=== PATIENT | female | born 1965 | race Caucasian/White ===

== ENCOUNTER 2017-07-08 20:50 | Inpatient (IN) | payer BC, OTHER ==
--- NOTE | 2017-07-08 20:58 | PDOC ---
Rapid Medical Evaluation Time Seen by Provider: 07/08/17 20:51 Medical Evaluation: Allergies Allergy/AdvReac Type Severity Reaction Status Date / Time No Known Allergies Allergy Verified 07/02/14 19:03 07/08/17 20:51 I have performed a brief in-person evaluation of this patient. The patient presents with a chief complaint of: CP x several weeks, possibly worse w/ exertion. Seen by her PMD last week and restarted on her asa. Told to f /u with her cards but has not yet done so. Per daughter pain, was more constant today so decided to bring pt in. Pt has h/o pre-DM, HTN, s/p admission at [facility] for CP in 2014 and was transferred to [place] for cath for elevated trop. No stent placed per pt and family Pertinent physical exam findings:Stable w/ unremarkable exam I have ordered the following:ekg/cxr/labs The patient will proceed to the ED for further evaluation. 07/08/17 21:03 Discharge Disposition - Diagnosis Chest pain Qualifiers: Chest pain type: unspecified Qualified Code(s): R07.9 - Chest pain, unspecified - Referrals - Patient Instructions - Post Discharge Activity
--- NOTE | 2017-07-08 21:08 | PDOC ---
History of Present Illness - General Chief Complaint: Chest Pain Stated Complaint: CHEST PAIN Time Seen by Provider: 07/08/17 20:51 History Source: Patient - History of Present Illness Initial Comments: 07/08/17 21:42 51 year old female c/o midsternal exertional chest pain with SOB x 1 week, worse today. patient was seen by pmd who prescribed NItroglycerin tabs and aspirin . patient reported that she took dose of nitroglycerin and 2 baby aspirin with no improvement in symptoms. PMD: h[facility]el white Cardiology: unsure Past History - Past Medical History Allergies/Adverse Reactions: Allergies Allergy/AdvReac Type Severity Reaction Status Date / Time No Known Allergies Allergy Verified 07/08/17 21:15 Home Medications: Ambulatory Orders Aspirin [Aspirin EC] 81 mg PO DAILY 07/08/17 Nitroglycerin Sublingual [Nitrostat -] 0.4 mg SL [id number] PRN MDD 3 07/08/17 Cardiac Disorders: Yes COPD: No Diabetes: (pre-diabetic) HTN: Yes - Surgical History Abdominal Surgery: Yes (C sections) Cardiac Surgery: Yes (cardiac catheterization) - Suicide/Smoking/Psychosocial Hx Smoking History: Never smoked Have you smoked in the past 12 months: No Hx Alcohol Use: No Substance Use Type: None Review of Systems - Review of Systems Able to Perform ROS?: Yes Is the patient limited Amharic proficient: No Constitutional: No: Symptoms Reported, See HPI, Chills, Diaphoresis, Fever, Loss of Appetite, Malaise, Night Sweats, Weakness, Weight Stable, Unintentional Wgt. Loss, Unexplained wgt Loss, Other *Physical Exam - Vital Signs Last Vital Signs Temp Pulse Resp BP Pulse Ox 98.7 F 57 L 20 167/81 98 07/08/17 20:53 07/08/17 22:31 07/08/17 22:31 07/08/17 22:31 07/08/17 22:31 - Physical Exam General Appearance: Yes: Appropriately Dressed Respiratory/Chest: positive: Lungs Clear, Normal Breath Sounds. negative: Chest Tender Cardiovascular: positive: Regular Rhythm, Regular Rate Gastrointestinal/Abdominal: positive: Normal Bowel Sounds, Soft Extremity: positive: Normal Capillary Refill, Normal Inspection, Normal Range of Motion Integumentary: positive: Normal Color, Dry, Warm Neurologic: positive: Fully Oriented, Alert, Normal Mood/Affect Heart Score/ECG Review - History History: Highly suspicious - Electrocardiogram EKG: Normal - Age Age: 45-65 - Risk Factors Risk Factors Heart Score: Yes Positive family hx of cardiac disease Based on the list above the patient has:: 1-2 risk factors - Troponin Troponin: >/=3x normal limit - Score Heart Score - Total: 6 - ECG Intrepretation Rhythm: Regular Rhythm Comment:: 07/08/17 23:47 NSR: 63 ED Treatment Course - LABORATORY CBC & Chemistry Diagram: 07/08/17 21:42 07/08/17 21:42 - ADDITIONAL ORDERS Additional order review: Laboratory Results 07/08/17 07/08/17 07/08/17 21:45 21:42 21:42 PT with INR INR PTT (Actin FS) D-Dimer 305 Sodium Potassium Chloride Carbon Dioxide Anion Gap BUN Creatinine Creat Clearance w eGFR Random Glucose Calcium Total Bilirubin AST ALT Alkaline Phosphatase Creatine Kinase Creatine Kinase Index CK-MB (CK-2) Troponin I B-Natriuretic Peptide 264.24 H Total Protein Albumin Urine Color Straw Urine Appearance Clear Urine pH 7.0 Ur Specific [place] 1.005 Urine Protein Negative Urine Glucose (UA) Negative Urine Ketones Negative Urine Blood 1+ H Urine Nitrite Negative Urine Bilirubin Negative Urine Urobilinogen Negative Ur Leukocyte Esterase Negative Urine WBC (Auto) 1 Urine RBC (Auto) 5 07/08/17 07/08/17 21:42 21:40 PT with INR 11.10 INR 0.98 PTT (Actin FS) 26.1 L D-Dimer Sodium 141 Potassium 4.2 Chloride 106 Carbon Dioxide 27 Anion Gap 8 BUN 9 Creatinine 0.7 Creat Clearance w eGFR > 60 Random Glucose 110 H Calcium 8.9 Total Bilirubin 0.3 AST 43 H ALT 57 Alkaline Phosphatase 162 H Creatine Kinase 209 H Creatine Kinase Index 3.5 CK-MB (CK-2) 7.395 H Troponin I 0.88 H* B-Natriuretic Peptide Total Protein 8.0 Albumin 3.7 Urine Color Urine Appearance Urine pH Ur Specific [place] Urine Protein Urine Glucose (UA) Urine Ketones Urine Blood Urine Nitrite Urine Bilirubin Urine Urobilinogen Ur Leukocyte Esterase Urine WBC (Auto) Urine RBC (Auto) 07/08/17 21:42 RBC 4.08 MCV 91.2 MCHC 35.5 RDW 13.2 MPV 9.6 Neutrophils % 60.6 Lymphocytes % 30.5 D Monocytes % 6.2 Eosinophils % 2.2 Basophils % 0.5 - RADIOLOGY Chest X-Ray Result: No Infiltrates - Medications Given in the ED: ED Medications Discontinued Medications Generic Name Dose Route Start Last Admin Trade Name Jhoan PRN Reason Stop Dose Admin Aspirin 162 mg 07/08/17 22:53 07/08/17 23:21 Asa - PO 07/08/17 22:54 162 mg ONCE ONE Administration Morphine Sulfate 4 mg 07/08/17 22:57 07/08/17 23:21 Morphine Injection - IVPUSH 07/08/17 22:58 4 mg ONCE ONE Administration Nitroglycerin 0.5 inch 07/08/17 22:03 07/08/17 22:10 Nitro-Bid 2% Paste - TD 07/08/17 22:04 0.5 inch ONCE ONE Administration Progress Note - Progress Note Progress Note: A: chest pain r/o ACS P: cbc cmp troponin bnp d-dimer EKG: NSR HR: 63bpm chest xray: wnl Medical Decision Making - Medical Decision Making 07/08/17 22:44 + troponin. Call placed to Dr. Swan service. 07/08/17 22:44 Patient's previous record shows seen by [facility] s/p cardiac catherization NSTEMI in 201407/08/17 22:[address] Swan: recommends nitro 0.4 mg SL PRN until chest pain goes away. if chest pain remains consider Nitro drip/. also recommends Heparin drip. patient to be evaluated by cardiology in the Am. 07/08/17 23:18 Patient to be admitted for further management of care. Patient signed out to Dr. Chu *DC/Admit/Observation/Transfer Diagnosis at time of Disposition: Chest pain Qualifiers: Chest pain type: unspecified Qualified Code(s): R07.9 - Chest pain, unspecified - Discharge Dispostion Decision to Admit order Date/Time: Decision to Admit Order Category Date Time Status Decision to Admit to Hospital Routine Admission 07/08/17 23:16 Active - Referrals - Patient Instructions - Post Discharge Activity
--- NOTE | 2017-07-08 21:48 | PDOC ---
*Physical Exam - Vital Signs Last Vital Signs Temp Pulse Resp BP Pulse Ox 98.7 F 64 18 160/83 97 07/08/17 20:53 07/08/17 20:53 07/08/17 20:53 07/08/17 20:53 07/08/17 21:30 ED Treatment Course - LABORATORY CBC & Chemistry Diagram: 07/08/17 21:42 07/08/17 21:42 Medical Decision Making - Critical Care Time Total Critical Care Time (minutes): 35 Critical Care Statement: The care of this patient involved high complexity decision making to prevent further life threatening deterioration of the patient 's condition and/or to evaluate & treat vital organ system(s) failure or risk of failure. - Medical Decision Making 07/08/17 21:47 51 yo F presenting to the ER with a complaint of chest pain Patient has a history of prior N STEMI, more than 2 years ago status post PCI,? Stenting. Patient has been on aspirin, follows up with cardiology yearly (last follow-up one year ago). Patient began having chest pain approximately 3 weeks ago. Pain would last for a possibly 3 hours and self resolved. Patient reported pain almost daily, was seen by her primary care physician angel [place]. She was started on nitroglycerin. Patient presents emergency department as she has been taking a nitroglycerin and it has not helped her chest pain. Patient has had persistent chest pain all day today. With pain radiating into her right neck and jaw, back. She feels congested/short of breath. Patient states even minor movements/exertion causes increased chest pain and shortness of breath. 10 EKG: Normal sinus rhythm, rate of 63 bpm, axis is normal, intervals are normal, no ST elevations or depressions, T-wave inversion in lead III, V3 Patient is at high risk for acute coronary syndrome Also on her differential are aortic dissection, PE. Blood pressure right arm: 174/89, left arm 169/70, rate 56 Chest x-ray is normal and demonstrates no widened mediastinum Will do labs Will give Nitropaste. D-dimer was sent. Low threshold to CTA. Patient will be admitted. May require heparin Tech cardiology. High risk chest pain Pt seen by Midlevel Provider under my direct supervision Pt interviewed and examined Ancillary studies reviewed I agree with plan as outlined by Midlevel Provider 07/08/17 22:08 Laboratory Tests 07/08/17 07/08/17 07/08/17 21:40 21:42 21:42 WBC 8.4 Hgb 13.2 Hct 37.2 Plt Count 228 PT with INR 11.10 INR 0.98 PTT (Actin FS) 26.1 L D-Dimer BUN 9 Creatinine 0.7 Random Glucose 110 H Creatine Kinase 209 H Creatine Kinase Index 3.5 CK-MB (CK-2) 7.395 H Troponin I 0.88 H* B-Natriuretic Peptide 07/08/17 07/08/17 21:42 21:45 WBC Hgb Hct Plt Count PT with INR INR PTT (Actin FS) D-Dimer 305 BUN Creatinine Random Glucose Creatine Kinase Creatine Kinase Index CK-MB (CK-2) Troponin I B-Natriuretic Peptide 264.24 H 07/08/17 22:[address] Swan Recommends an additional Aspirin 162, Heparin drip, SLN until chest pain free Admit to Tele 07/08/17 23:50 Clinical Impression: NSTEMI, initial presentation *DC/Admit/Observation/Transfer Diagnosis at time of Disposition: Chest pain Qualifiers: Chest pain type: unspecified Qualified Code(s): R07.9 - Chest pain, unspecified - Referrals - Patient Instructions - Post Discharge Activity
[2017-07-08] MEDS ORDERED: NITROGLYCERIN 2% OINTMENT - 1GM PACKET TD ONE ×2 (22:03)
[2017-07-08 22:13] LABS: BASO % 0.5 % (0-2.0); EOS % 2.2 % (0-4.5); HEMATOCRIT 37.2 % (32.4-45.2); HEMOGLOBIN 13.2 GM/dL (10.7-15.3); LYMPH % 30.5 % (8-40); MCH 32.4 pg (25.7-33.7); MCHC 35.5 g/dl (32.0-36.0); MEAN CELL VOLUME 91.2 fl (80-96); MEAN PLT VOLUME 9.6 fl (7.5-11.1); MONO % 6.2 % (3.8-10.2); NEUT % 60.6 % (42.8-82.8); PLATELET COUNT 228 K/MM3 (134-434); RBC 4.08 M/mm3 (3.60-5.2); RDW 13.2 % (11.6-15.6); URINE APPEARANCE CLEAR; URINE BILIRUBIN NEGATIVE (<2.0 mg/dL); URINE BLOOD 1+ (NEGATIVE); URINE COLOR STRAW; URINE GLUCOSE (UA) NEGATIVE (NEGATIVE); URINE KETONE NEGATIVE (NEGATIVE); URINE LEUK ESTERASE NEGATIVE (NEGATIVE); URINE NITRITE NEGATIVE (NEGATIVE); URINE PROTEIN NEGATIVE (NEGATIVE); URINE UROBILINOGEN NEGATIVE mg/dL (0.2-1.0); WHITE BLOOD COUNT 8.4 K/mm3 (4.0-10.0)
[2017-07-08 22:20] LABS: ALBUMIN 3.7 g/dl (3.4-5.0); ANION GAP 8 (8-16); BILIRUBIN,TOTAL 0.3 mg/dL (0.2-1.0); BLOOD UREA NITROGEN 9 mg/dL (7-18); CALCIUM 8.9 mg/dL (8.5-10.1); CHLORIDE 106 mmol/L (98-107); CO2 27 mmol/L (21-32); CREATININE 0.7 mg/dL (0.55-1.02); GLUCOSE,RANDOM 110 mg/dL (74-106); POTASSIUM 4.2 mmol/L (3.5-5.1); SGOT/AST 43 U/L (15-37); SGPT/ALT 57 U/L (12-78); SODIUM 141 mmol/L (136-145)
[2017-07-08 22:34] LABS: ALK PHOS 162 U/L (45-117)
[2017-07-08] MEDS ORDERED: NITROGLYCERIN SUBLINGUAL 1/200 0.3 MG BTL SL PRN (22:53)
[2017-07-08] MEDS ORDERED: ASPIRIN 81 MG CHEWABLE TABLETS PO ONE (22:53)
[2017-07-08] MEDS ORDERED: morphine CARPU-JECT 4 MG/1 ML DISP.SYRIN IVPUSH ONE (22:57)
[2017-07-08] MEDS ORDERED: HEPARIN - 25,000 UNIT in SODIUM CHLORIDE 495 ML IV SCH ×2 (23:00→23:15)
[2017-07-08] MEDS ORDERED: HEPARIN NA (PORCINE) 5,000 UNITS/ML 1ML VIAL IVPUSH PRN ×2 (23:02)
[2017-07-08] MEDS ORDERED: ASPIRIN 81 MG CHEWABLE TABLETS ONE (23:03)
[2017-07-08] MEDS ORDERED: MORPHINE SULFATE 10 MG/1 ML *VIAL ONE (23:03)
[2017-07-08 23:04] LABS: INR 0.98 (0.82-1.09); PROTHROMBIN TIME (PATIENT) 11.1 SEC (9.98-11.88)
[2017-07-08] MEDS ORDERED: HEPARIN INFUSION - 25,000 UNITS/500 ML INFUS.BAG IVPB ONE (23:04)
[2017-07-08 23:07] LABS: ACTIVATED PTT 26.1 SECONDS (26.9-34.4)
--- NOTE | 2017-07-08 23:13 | PN ---
Teaching Attending Note Name of Resident: Lazara Dumont ATTENDING PHYSICIAN STATEMENT I saw and evaluated the patient. I reviewed the resident's note and discussed the case with the resident. I agree with the resident's findings and plan as documented. SUBJECTIVE: 51 F with pmhx. of Dm, nstemi, who presents with chest pain. She was seen by her PCP who had prescribed her NTG and Asa. States she took one dose of NTG and ASA X2 with continued chest pain. Also with shortness of breath upon exertion. States CP was present 3 weeks ago, intermittently, but became constant today. Notes Pain is mid-sternal and radiating to R. Jaw. No N, V, Diarrhea. No diaphoresis. No fevers or chills. No chest pressure. Notes SL Nitro in hospital has relieved her pain and pain is 0/10, currently. OBJECTIVE: Physical: VS: Vital Signs Period Temp Pulse Resp BP Sys/Cabrera Pulse Ox Last 24 Hr 98.7 F 57-64 18-20 160-174/81-89 97-98 GEN: NAD, Resting in bed, AA0X3 HEENT: NCAT, PERRL, Throat without erythema or exudates CARD: RRR S1, S2 RESP: CTAB ABD: BSx4, NTD to palpation EXT: - C/C/E CBCD WBC 8.4 K/mm3 (4.0-10.0) 07/08/17 21:42 RBC 4.08 M/mm3 (3.60-5.2) 07/08/17 21:42 Hgb 13.2 GM/dL (10.7-15.3) 07/08/17 21:42 Hct 37.2 % (32.4-45.2) 07/08/17 21:42 MCV 91.2 fl (80-96) 07/08/17 21:42 MCHC 35.5 g/dl (32.0-36.0) 07/08/17 21:42 RDW 13.2 % (11.6-15.6) 07/08/17 21:42 Plt Count 228 K/MM3 (134-434) 07/08/17 21:42 MPV 9.6 fl (7.5-11.1) 07/08/17 21:42 CMP Sodium 141 mmol/L (136-145) 04/16/18 21:42 Potassium 4.2 mmol/L (3.5-5.1) 07/08/17 21:42 Chloride 106 mmol/L (98-107) 07/08/17 21:42 Carbon Dioxide 27 mmol/L (21-32) 07/08/17 21:42 Anion Gap 8 (8-16) 07/08/17 21:42 BUN 9 mg/dL (7-18) 07/08/17 21:42 Creatinine 0.7 mg/dL (0.55-1.02) 07/08/17 21:42 Creat Clearance w eGFR > 60 (>60) 07/08/17 21:42 Random Glucose 110 mg/dL (74-106) H 07/08/17 21:42 Calcium 8.9 mg/dL (8.5-10.1) 07/08/17 21:42 Total Bilirubin 0.3 mg/dL (0.2-1.0) 07/08/17 21:42 AST 43 U/L (15-37) H 07/08/17 21:42 ALT 57 U/L (12-78) 07/08/17 21:42 Alkaline Phosphatase 162 U/L (45-117) H 07/08/17 21:42 Total Protein 8.0 g/dl (6.4-8.2) 07/08/17 21:42 Albumin 3.7 g/dl (3.4-5.0) 07/08/17 21:42 CARDIAC ENZYMES Creatine Kinase 209 IU/L (26-192) H 07/08/17 21:42 Troponin I 0.88 ng/ml (0.00-0.05) H* 07/08/17 21:42 EKG: Normal sinus rhythm, rate of 63 bpm, axis is normal, intervals are normal, no ST elevations or depressions, T-wave inversion in lead III, V3 CXR: Normal Chest ASSESSMENT AND PLAN: 51 F with pmhx. of Dm, nstemi, who presents with chest pain, being admitted with NSTEMI 1.) NSTEMI - ASA , Plavix - Hep. gtt - 02, BB - Nitro/Morphine prn chest pain - Trend Trop/EKG - Echo - Lipid Panel/statin/HgBA1c - Cardiology called and spoken to by ED. 2.) DM - FS - RAISS 3.) Dvt Ppx - Hep. gtt
[2017-07-09] MEDS ORDERED: CLOPIDOGREL BISULFATE 300 MG TABLET PO ONE (00:02)
--- NOTE | 2017-07-09 00:13 | HP ---
CHIEF COMPLAINT: chest pain History obtained from daughter and patient. HISTORY OF PRESENT ILLNESS: Patient is a 51 yo F with a pmhx of HTN, NSTEMI ( 2015, s/p stent?), presented today because of 3 week onset of intermittent, 9/10 , mid-sternal, pressure-like chest pain with exertion, radiating to the right side of her neck. She said the pain usually lasts 45 minutes but today the pain lasted all day with associated dizziness and nausea. She was seen by her PCP and was prescribed nitroglycerin and Aspirin with no relief. Patient also reports having dyspnea on exertion. Patient had a similar episode in 2014 and was diagnosed with NSTEMI and transferred to [place]. Patient does not remember if she had a stent placed. Nitroglycerin was given in the ER and patient currently does not have chest pain. Patient denies edema, diaphoresis, diarrhea, vomiting, dysuria, fevers. ER course was notable for: (1) Trop: 0.88, EKG NSR, no ST changes (2) Heparin drip, NTG, ASA (3) Cardiology consulted: Dr. Swan Recent Travel: n/a PAST MEDICAL HISTORY: HTN, prediabetes Social History: Smoking: denies Alcohol: denies Drugs: denies Family History: Allergies No Known Allergies Allergy (Verified 07/08/17 21:15) HOME MEDICATIONS: Home Medications Medication Instructions Recorded Aspirin [Aspirin EC] 81 mg PO DAILY 07/08/17 Nitroglycerin Sublingual 0.4 mg SL [id number] PRN MDD 3 07/08/17 [Nitrostat -] REVIEW OF SYSTEMS CONSTITUTIONAL: Absent: fever, chills, diaphoresis, generalized weakness, malaise, loss of appetite, weight change HEENT: Absent: rhinorrhea, nasal congestion, throat pain, throat swelling, difficulty swallowing, mouth swelling, ear pain, eye pain, visual changes CARDIOVASCULAR: chest pain, Absent: chest pain, syncope, palpitations, irregular heart rate, lightheadedness , peripheral edema RESPIRATORY: Absent: cough, shortness of breath, dyspnea with exertion, orthopnea, wheezing, stridor, hemoptysis GASTROINTESTINAL: nausea Absent: abdominal pain, abdominal distension, vomiting, diarrhea, constipation, melena, hematochezia GENITOURINARY: Absent: dysuria, frequency, urgency, hesitancy, hematuria, flank pain, genital pain MUSCULOSKELETAL: Absent: myalgia, arthralgia, joint swelling, back pain, neck pain SKIN: Absent: rash, itching, pallor HEMATOLOGIC/IMMUNOLOGIC: Absent: easy bleeding, easy bruising, lymphadenopathy, frequent infections ENDOCRINE: Absent: unexplained weight gain, unexplained weight loss, heat intolerance, cold intolerance NEUROLOGIC: Absent: headache, focal weakness or paresthesias, dizziness, unsteady gait, seizure, mental status changes, bladder or bowel incontinence PSYCHIATRIC: Absent: anxiety, depression, suicidal or homicidal ideation, hallucinations. PHYSICAL EXAMINATION Vital Signs - 24 hr 07/08/17 07/08/17 07/08/17 20:53 21:30 22:10 Temperature 98.7 F Pulse Rate 64 Pulse Rate [ 59 L Right] Respiratory 18 20 Rate Blood Pressure 160/83 Blood Pressure 174/89 [Left Arm] O2 Sat by Pulse 97 97 98 Oximetry (%) 07/08/17 22:31 Temperature Pulse Rate Pulse Rate [ 57 L Right] Respiratory 20 Rate Blood Pressure Blood Pressure 167/81 [Left Arm] O2 Sat by Pulse 98 Oximetry (%) GENERAL: Awake, alert, and fully oriented, in no acute distress. HEAD: Normal with no signs of trauma. EYES: extraocular movements intact, sclera anicteric, conjunctiva clear. EARS, NOSE, THROAT: oropharynx clear without exudates. Moist mucous membranes. NECK: Normal range of motion, supple without lymphadenopathy, JVD, or masses. LUNGS: Breath sounds equal, clear to auscultation bilaterally. No wheezes, and no crackles. No accessory muscle use. HEART: Regular rate and rhythm, normal S1 and S2 without murmur, rub or gallop. ABDOMEN: Soft, nontender, not distended, normoactive bowel sounds, no guarding, no rebound, no masses. UPPER EXTREMITIES: 2+ pulses, warm, well-perfused. No cyanosis. No clubbing. No peripheral edema. LOWER EXTREMITIES: 2+ pulses, warm, well-perfused. No calf tenderness. No peripheral edema. NEUROLOGICAL: Cranial nerves II-XII intact. Normal speech. Laboratory Results - last 24 hr 07/08/17 07/08/17 07/08/17 21:40 21:42 21:42 WBC 8.4 RBC 4.08 Hgb 13.2 Hct 37.2 MCV 91.2 MCH 32.4 MCHC 35.5 RDW 13.2 Plt Count 228 MPV 9.6 Neutrophils % 60.6 Lymphocytes % 30.5 D Monocytes % 6.2 Eosinophils % 2.2 Basophils % 0.5 PT with INR 11.10 INR 0.98 PTT (Actin FS) 26.1 L D-Dimer Sodium 141 Potassium 4.2 Chloride 106 Carbon Dioxide 27 Anion Gap 8 BUN 9 Creatinine 0.7 Creat Clearance w eGFR > 60 Random Glucose 110 H Calcium 8.9 Total Bilirubin 0.3 AST 43 H ALT 57 Alkaline Phosphatase 162 H Creatine Kinase 209 H Creatine Kinase Index 3.5 CK-MB (CK-2) 7.395 H Troponin I 0.88 H* B-Natriuretic Peptide Total Protein 8.0 Albumin 3.7 Urine Color Urine Appearance Urine pH Ur Specific [place] Urine Protein Urine Glucose (UA) Urine Ketones Urine Blood Urine Nitrite Urine Bilirubin Urine Urobilinogen Ur Leukocyte Esterase Urine WBC (Auto) Urine RBC (Auto) 07/08/17 07/08/17 07/08/17 21:42 21:42 21:45 WBC RBC Hgb Hct MCV MCH MCHC RDW Plt Count MPV Neutrophils % Lymphocytes % Monocytes % Eosinophils % Basophils % PT with INR INR PTT (Actin FS) D-Dimer 305 Sodium Potassium Chloride Carbon Dioxide Anion Gap BUN Creatinine Creat Clearance w eGFR Random Glucose Calcium Total Bilirubin AST ALT Alkaline Phosphatase Creatine Kinase Creatine Kinase Index CK-MB (CK-2) Troponin I B-Natriuretic Peptide 264.24 H Total Protein Albumin Urine Color Straw Urine Appearance Clear Urine pH 7.0 Ur Specific [place] 1.005 Urine Protein Negative Urine Glucose (UA) Negative Urine Ketones Negative Urine Blood 1+ H Urine Nitrite Negative Urine Bilirubin Negative Urine Urobilinogen Negative Ur Leukocyte Esterase Negative Urine WBC (Auto) 1 Urine RBC (Auto) 5 ASSESSMENT/PLAN: 51 yo F with a pmhx of HTN, NSTEMI (2015, s/p stent?), presented today because of intermittent chest pain over the last 3 weeks. #NSTEMI -Heparin drip -Cardiology consulted: Dr. Swan -EKG in AM -Trop 0.88, FU am level -1 x Plavix 300mg -Nitroglycerin -1x Metoprolol 25mg -O2 -Lipid Panel -HgA1c -Echo -Cardiac monitoring #FEN -No fluids at this time -WNL -Sodium restricted #PPX -Heparin Drip Admit Tele Visit type - Emergency Visit Emergency Visit: Yes ED Registration Date: 07/08/17 Care time: The patient presented to the Emergency Department on the above date and was hospitalized for further evaluation of their emergent condition. - New Patient This patient is new to me today: Yes Date on this admission: 07/09/17 - Critical Care Critical Care patient: No Hospitalist Screening - Colonoscopy Questionnaire Colonoscopy Questionnaire: Colonoscopy Questionnaire - Patient: 50 - 75 years old and never had a screening colonoscopy: Unknown History of colon or rectal polyps, or CA: Unknown History of IBD, Crohn's disease or UC: Unknown History of abdominal radiation therapy as a child: Unknown - Relative: 1 with colon or rectal CA, or polyps at age 60 or younger: Unknown Colon or rectal CA diagnosed at age 45 or younger: Unknown Multiple relatives with colon or rectal CA: Unknown - Outcome: Screening Result: Negative Screen
[2017-07-09] MEDS ORDERED: METOPROLOL TARTRATE 25 MG TABLET (FP) PO ONE ×2 (00:49→10:00)
[2017-07-09 01:54] VITALS: BMI 31.0
[2017-07-09] MEDS ORDERED: ACETAMINOPHEN 325 MG TABLET (FP) PO ONE (05:57)
[2017-07-09 07:05] LABS: INR 1.01 (0.82-1.09); PROTHROMBIN TIME (PATIENT) 11.4 SEC (9.98-11.88)
[2017-07-09 07:07] LABS: BASO % 0.4 % (0-2.0); EOS % 2.4 % (0-4.5); HEMATOCRIT 36.2 % (32.4-45.2); HEMOGLOBIN 12.7 GM/dL (10.7-15.3); LYMPH % 32.8 % (8-40); MCH 32.5 pg (25.7-33.7); MCHC 35.2 g/dl (32.0-36.0); MEAN CELL VOLUME 92.4 fl (80-96); MEAN PLT VOLUME 9.7 fl (7.5-11.1); MONO % 4.9 % (3.8-10.2); NEUT % 59.5 % (42.8-82.8); PLATELET COUNT 218 K/MM3 (134-434); RBC 3.91 M/mm3 (3.60-5.2); RDW 12.7 % (11.6-15.6); WHITE BLOOD COUNT 9.2 K/mm3 (4.0-10.0)
[2017-07-09 07:17] LABS: ALBUMIN 3.5 g/dl (3.4-5.0); ANION GAP 7 (8-16); BLOOD UREA NITROGEN 10 mg/dL (7-18); CALCIUM 8.8 mg/dL (8.5-10.1); CHLORIDE 104 mmol/L (98-107); CO2 28 mmol/L (21-32); GLUCOSE,RANDOM 122 mg/dL (74-106); MAGNESIUM 2.1 mg/dL (1.8-2.4); POTASSIUM 3.9 mmol/L (3.5-5.1); SODIUM 139 mmol/L (136-145)
[2017-07-09 07:35] LABS: ALK PHOS 145 U/L (45-117); BILIRUBIN,TOTAL 0.4 mg/dL (0.2-1.0); CHOLESTEROL 190 mg/dL (50-200); CREATININE 0.6 mg/dL (0.55-1.02); PHOSPHOROUS 4.8 mg/dL (2.5-4.9); SGOT/AST 45 U/L (15-37); SGPT/ALT 50 U/L (12-78); TOT PROT 7.2 g/dl (6.4-8.2)
[2017-07-09 07:52] LABS: CHOLESTEROL 198 mg/dL (50-200); LDL CHOLESTEROL (ONLY SJRH) 97 mg/dL (5-100); TRIGLYCERIDES 440 mg/dL (35-160)
[2017-07-09 07:53] LABS: HDL CHOLESTEROL 32 mg/dL (40-60)
--- NOTE | 2017-07-09 07:56 | PN ---
Physical Exam: SUBJECTIVE: Patient seen and examined by me this AM - No major overnight events; on heparin gtt; pt complaining of mild, deep, substernal chest pain without radiation with some associated chest tightness; Also endorses mild L frontal WOOD with no associated neuro findings; Denies f/c/n/ v/d, lightheadness, cough, sob, ab pain, back pain, LE edema or peripheral numbness/weakness; pt only takes ASA at home; prior NSTEMI in 2014 OBJECTIVE: Vital Signs Intake & Output 07/06/17 07/07/17 07/08/17 07/09/17 23:59 23:59 23:59 23:59 Intake Total 120 Balance 120 Weight 68.039 kg 67.313 kg Period Temp Pulse Resp BP Sys/Cabrera Pulse Ox Last 24 Hr 98.3 F-98.7 F 57-77 18-20 134-174/68-89 97-99 GENERAL: Middle aged woman, NAD, A&Ox3 HEAD: NCAT EYES: PERRL, extraocular movements intact, sclera anicteric, conjunctiva clear. No ptosis. ENT: Ears normal, nares patent, oropharynx clear without exudates, moist mucous membranes. NECK: Trachea midline, full range of motion, supple. LUNGS: CTABL, no wheezes or rhonchi HEART: Regular rate and rhythm, S1, S2 without murmur, rub or gallop. ABDOMEN: Soft, nontender, nondistended, normoactive bowel sounds, no guarding, no rebound EXTREMITIES: 2+ pulses, warm, well-perfused, no edema. NEUROLOGICAL: Cranial nerves II through XII grossly intact. Normal speech, gait not observed. PSYCH: Normal mood, normal affect. Laboratory Results - last 24 hr CBC, BMP 07/09/17 05:35 07/09/17 05:35 07/08/17 07/08/17 07/08/17 21:40 21:42 21:42 WBC 8.4 RBC 4.08 Hgb 13.2 Hct 37.2 MCV 91.2 MCH 32.4 MCHC 35.5 RDW 13.2 Plt Count 228 MPV 9.6 Neutrophils % 60.6 Lymphocytes % 30.5 D Monocytes % 6.2 Eosinophils % 2.2 Basophils % 0.5 PT with INR 11.10 INR 0.98 PTT (Actin FS) 26.1 L D-Dimer Sodium 141 Potassium 4.2 Chloride 106 Carbon Dioxide 27 Anion Gap 8 BUN 9 Creatinine 0.7 Creat Clearance w eGFR > 60 Random Glucose 110 H Calcium 8.9 Total Bilirubin 0.3 AST 43 H ALT 57 Alkaline Phosphatase 162 H Creatine Kinase 209 H Creatine Kinase Index 3.5 CK-MB (CK-2) 7.395 H Troponin I 0.88 H* B-Natriuretic Peptide Total Protein 8.0 Albumin 3.7 Urine Color Urine Appearance Urine pH Ur Specific [place] Urine Protein Urine Glucose (UA) Urine Ketones Urine Blood Urine Nitrite Urine Bilirubin Urine Urobilinogen Ur Leukocyte Esterase Urine WBC (Auto) Urine RBC (Auto) 07/08/17 07/08/17 07/08/17 21:42 21:42 21:45 WBC RBC Hgb Hct MCV MCH MCHC RDW Plt Count MPV Neutrophils % Lymphocytes % Monocytes % Eosinophils % Basophils % PT with INR INR PTT (Actin FS) D-Dimer 305 Sodium Potassium Chloride Carbon Dioxide Anion Gap BUN Creatinine Creat Clearance w eGFR Random Glucose Calcium Total Bilirubin AST ALT Alkaline Phosphatase Creatine Kinase Creatine Kinase Index CK-MB (CK-2) Troponin I B-Natriuretic Peptide 264.24 H Total Protein Albumin Urine Color Straw Urine Appearance Clear Urine pH 7.0 Ur Specific [place] 1.005 Urine Protein Negative Urine Glucose (UA) Negative Urine Ketones Negative Urine Blood 1+ H Urine Nitrite Negative Urine Bilirubin Negative Urine Urobilinogen Negative Ur Leukocyte Esterase Negative Urine WBC (Auto) 1 Urine RBC (Auto) 5 07/09/17 07/09/17 07/09/17 05:35 05:35 05:35 WBC 9.2 RBC 3.91 Hgb 12.7 Hct 36.2 MCV 92.4 MCH 32.5 MCHC 35.2 RDW 12.7 Plt Count 218 MPV 9.7 Neutrophils % 59.5 Lymphocytes % 32.8 Monocytes % 4.9 Eosinophils % 2.4 Basophils % 0.4 PT with INR 11.40 INR 1.01 PTT (Actin FS) 54.1 H D D-Dimer Sodium Potassium Chloride Carbon Dioxide Anion Gap BUN Creatinine Creat Clearance w eGFR Random Glucose Calcium Total Bilirubin AST ALT Alkaline Phosphatase Creatine Kinase Creatine Kinase Index CK-MB (CK-2) Troponin I B-Natriuretic Peptide Total Protein Albumin Urine Color Urine Appearance Urine pH Ur Specific [place] Urine Protein Urine Glucose (UA) Urine Ketones Urine Blood Urine Nitrite Urine Bilirubin Urine Urobilinogen Ur Leukocyte Esterase Urine WBC (Auto) Urine RBC (Auto) Active Medications Generic Name Dose Route Start Last Admin Trade Name Freq PRN Reason Stop Dose Admin Heparin Sodium (Porcine) 1,000 unit 07/08/17 23:02 Heparin - IVPUSH PRN PRN Heparin Heparin Sodium (Porcine) 5,000 unit 07/08/17 23:02 Heparin - IVPUSH PRN PRN Heparin Heparin Sodium (Porcine) 25, 500 mls @ 20 mls/hr 07/08/17 23:00 07/08/17 23: 22 000 unit/ Sodium Chloride IV 1,000 unit/hr TITR VOLODYMYR 20 mls/hr Protocol Administration 1,000 UNIT/HR Nitroglycerin 0.3 mg 07/08/17 22:53 Nitrostat - SL Q5M PRN FOR CHEST PAIN No micro EKG 07/09 AM - NSR, rate of 60, NAD, no ST/TW changes CXR 07/08 - Normal chest ASSESSMENT/PLAN: 51 yo F with a pmhx of HTN, NSTEMI (2014, s/p stent?), presented today because of intermittent chest pain over the last 3 weeks. #NSTEMI -Heparin drip -Cardiology consulted: Dr. Swan -EKG in AM -Trop 0.88, FU am level -1 x Plavix 300mg -Nitroglycerin -1x Metoprolol 25mg -O2 -Lipid Panel -HgA1c -Echo -Cardiac monitoring #FEN -No fluids at this time -WNL -Sodium restricted #PPX -Heparin Drip Admit Tele
--- NOTE | 2017-07-09 12:09 | CON.CARD ---
Cardiology Consult (text) - Consultation Consultation Note: CC: CP 51 yo with h/o htn, nstemi 2014 (s/p cath, no intervention), dm who p/w cp recurrent nstemi. + CP x several weeks, possibly worse w/ exertion. Seen by her PMD last week -- > restarted on her asa and scheduled follow up with cardiology. Per report pain , was more constant today so came to ER for evaluation. Per report, took itroglycerin and 2 baby aspirin at home with no improvement in symptoms. In ER she received ASA 162, 0.5 inch of 2% nitropaste --> removed this morning ( + h/a), morphine 4 mg x 1. Had troponin bump and was started on heparin drip overnight. S/p plavix 300 mg x 1 today as well as lopressor 25 mg po x 1. Ambulatory Orders Aspirin [Aspirin EC] 81 mg PO DAILY 07/08/17 Nitroglycerin Sublingual [Nitrostat -] 0.4 mg SL [id number] PRN MDD 3 07/08/17 Current Medications Heparin Sodium (Porcine) (Heparin -) 1,000 unit IVPUSH PRN PRN PRN Reason: Heparin Heparin Sodium (Porcine) (Heparin -) 5,000 unit IVPUSH PRN PRN PRN Reason: Heparin Heparin Sodium (Porcine) 25, (000 unit/ Sodium Chloride) 500 mls @ 20 mls/hr IV TITR VOLODYMYR; 1,000 UNIT/HR PRN Reason: Protocol Last Admin: 07/08/17 23:22 Dose: 1,000 unit/hr, 20 mls/hr Nitroglycerin (Nitrostat -) 0.3 mg SL Q5M PRN PRN Reason: FOR CHEST PAIN Vital Signs - 24 hr 07/08/17 07/08/17 07/08/17 20:53 21:30 22:10 Temperature 98.7 F Pulse Rate 64 Pulse Rate [ 59 L Right] Respiratory 18 20 Rate Blood Pressure 160/83 Blood Pressure 174/89 [Left Arm] O2 Sat by Pulse 97 97 98 Oximetry (%) 07/08/17 07/09/17 07/09/17 22:31 00:39 00:55 Temperature 98.4 F Pulse Rate 63 Pulse Rate [ 57 L 77 Right] Respiratory 20 20 20 Rate Blood Pressure 134/68 Blood Pressure 167/81 147/75 [Left Arm] O2 Sat by Pulse 98 98 99 Oximetry (%) 07/09/17 05:39 Temperature 98.3 F Pulse Rate 58 L Pulse Rate [ Right] Respiratory 20 Rate Blood Pressure 150/69 Blood Pressure [Left Arm] O2 Sat by Pulse Oximetry (%) Intake & Output 07/07/17 07/08/17 07/09/17 07/10/17 07:59 07:59 07:59 07:59 Intake Total 120 Balance 120 Weight 148 lb 6.4 oz CBC, BMP 07/09/17 05:35 07/09/17 05:35 Laboratory Tests 07/04/14 07/08/17 07/08/17 06:15 21:42 21:42 PTT (Actin FS) D-Dimer Hemoglobin A1c % Magnesium Total Bilirubin AST ALT Alkaline Phosphatase Creatine Kinase 209 H Creatine Kinase Index 3.5 CK-MB (CK-2) 7.395 H Troponin I 3.39 H* 0.88 H* B-Natriuretic Peptide 264.24 H Albumin Triglycerides Cholesterol Total LDL Cholesterol HDL Cholesterol 07/08/17 07/09/17 07/09/17 21:45 05:35 05:35 PTT (Actin FS) D-Dimer 305 Hemoglobin A1c % 7.8 H Magnesium 2.1 Total Bilirubin 0.4 D AST 45 H ALT 50 Alkaline Phosphatase 145 H Creatine Kinase Creatine Kinase Index CK-MB (CK-2) 8.339 H Troponin I 2.70 H* B-Natriuretic Peptide Albumin 3.5 Triglycerides Cholesterol Total LDL Cholesterol HDL Cholesterol 07/09/17 07/09/17 05:35 05:35 PTT (Actin FS) 54.1 H D D-Dimer Hemoglobin A1c % Magnesium Total Bilirubin AST ALT Alkaline Phosphatase Creatine Kinase Creatine Kinase Index CK-MB (CK-2) Troponin I B-Natriuretic Peptide Albumin Triglycerides 440 H Cholesterol 198 Total LDL Cholesterol 97 HDL Cholesterol 32 L tele: SB/SR. EKG 07/08: sr, borderline short pr interval (118 ms). lvh. no acute ischemic changes. EKG 07/09: sinus 59 bpm. AR now 124 ms. Increased r wave voltage in anterior leads. t wave now upright in v1. (no anterior st depression). T wave flattening in avf EKG 07/09 #2: q waves developing in inferior leads. t wave inversion in avf. otherwise unchanged. NSTEMI with dynamic changes concerning for evolving inferior ischemia. - con't heparin drip. has not yet received her asa, plavix, high dose statin today will give now. 3rd set of cardiac enzymes due now, ordered. npo now. Baseline HR sr/sb, but trending up now --> will start lopressor bid, first dose now (monitor for bradycardia). Will give additional norvasc 5 mg daily to manage elevated blood pressure and as additional anti-anginal, first dose now. goal sbp's closer to 120's. Will d/c SL nitro. - discussed plan with interventional cardiology at [facility] [place]. Will transfer for cath today.
[2017-07-09] MEDS ORDERED: ATORVASTATIN CA 80 MG TABLET (FP) PO SCH ×2 (12:24→22:00)
[2017-07-09] MEDS ORDERED: ASPIRIN 81 MG CHEWABLE TABLETS PO SCH (12:30)
[2017-07-09] MEDS ORDERED: ACETAMINOPHEN 500 MG TABLET (FP) PO PRN (12:40)
[2017-07-09] MEDS ORDERED: CLOPIDOGREL BISULFATE 75 MG TABLET (FP) PO SCH (12:45)
[2017-07-09] MEDS ORDERED: amLODIPine BESYLATE 5 MG TABLET (FP) PO SCH (12:45)
[2017-07-09] MEDS ORDERED: METOPROLOL TARTRATE 25 MG TABLET (FP) PO SCH (12:45)
--- NOTE | 2017-07-09 14:02 | MSN ---
Progress Note (short form) - Note Progress Note: SUBJECTIVE: Patient seen and examined this morning. She states her chest pain is much improved and currently she has no pain. She denies SOB, nausea/vomiting , diaphoresis, or weakness. She complains of a left frontal headache that radiates to her occiput not associated with photophobia, changes in vision, or focal neurological deficit. The headache was partly relieved with acetaminophen. OBJECTIVE: Vital Signs Period Temp Pulse Resp BP Sys/Cabrera Pulse Ox Last 24 Hr 98.0 F-98.7 F 57-77 18-20 132-174/68-89 97-99 GENERAL: Well-groomed middle aged woman resting comfortably HEENT: No scleral pallor, anicertic, EOMI, PERRLA, mucous membranes moist, no tonsilar exudates or erythema NECK: Supple without thyromegaly CARDIOVASCULAR: No JVD, regular at 60 bpm S1/S2 without murmur LUNGS: Clear to auscultation b/l without wheezes or crackles ABDOMEN: Soft, non-tender, normoactive bowel sounds, no masses or organomegaly EXTREMITIES: 2 + pulses equal b/l, no edema, warm NEURO: CN II-XII grossly intact, sensation grossly intact, no facial droop, normal speech, gait not observed Laboratory Results - last 24 hr 07/08/17 07/08/17 07/08/17 21:40 21:42 21:42 WBC 8.4 RBC 4.08 Hgb 13.2 Hct 37.2 MCV 91.2 MCH 32.4 MCHC 35.5 RDW 13.2 Plt Count 228 MPV 9.6 Neutrophils % 60.6 Lymphocytes % 30.5 D Monocytes % 6.2 Eosinophils % 2.2 Basophils % 0.5 PT with INR 11.10 INR 0.98 PTT (Actin FS) 26.1 L D-Dimer Sodium 141 Potassium 4.2 Chloride 106 Carbon Dioxide 27 Anion Gap 8 BUN 9 Creatinine 0.7 Creat Clearance w eGFR > 60 Random Glucose 110 H Hemoglobin A1c % Calcium 8.9 Phosphorus Magnesium Total Bilirubin 0.3 AST 43 H ALT 57 Alkaline Phosphatase 162 H Creatine Kinase 209 H Creatine Kinase Index 3.5 CK-MB (CK-2) 7.395 H Troponin I 0.88 H* B-Natriuretic Peptide Total Protein 8.0 Albumin 3.7 Triglycerides Cholesterol Total LDL Cholesterol HDL Cholesterol Urine Color Urine Appearance Urine pH Ur Specific [place] Urine Protein Urine Glucose (UA) Urine Ketones Urine Blood Urine Nitrite Urine Bilirubin Urine Urobilinogen Ur Leukocyte Esterase Urine WBC (Auto) Urine RBC (Auto) 07/08/17 07/08/17 07/08/17 21:42 21:42 21:45 WBC RBC Hgb Hct MCV MCH MCHC RDW Plt Count MPV Neutrophils % Lymphocytes % Monocytes % Eosinophils % Basophils % PT with INR INR PTT (Actin FS) D-Dimer 305 Sodium Potassium Chloride Carbon Dioxide Anion Gap BUN Creatinine Creat Clearance w eGFR Random Glucose Hemoglobin A1c % Calcium Phosphorus Magnesium Total Bilirubin AST ALT Alkaline Phosphatase Creatine Kinase Creatine Kinase Index CK-MB (CK-2) Troponin I B-Natriuretic Peptide 264.24 H Total Protein Albumin Triglycerides Cholesterol Total LDL Cholesterol HDL Cholesterol Urine Color Straw Urine Appearance Clear Urine pH 7.0 Ur Specific [place] 1.005 Urine Protein Negative Urine Glucose (UA) Negative Urine Ketones Negative Urine Blood 1+ H Urine Nitrite Negative Urine Bilirubin Negative Urine Urobilinogen Negative Ur Leukocyte Esterase Negative Urine WBC (Auto) 1 Urine RBC (Auto) 5 07/09/17 07/09/17 07/09/17 05:30 05:35 05:35 WBC 9.2 RBC 3.91 Hgb 12.7 Hct 36.2 MCV 92.4 MCH 32.5 MCHC 35.2 RDW 12.7 Plt Count 218 MPV 9.7 Neutrophils % 59.5 Lymphocytes % 32.8 Monocytes % 4.9 Eosinophils % 2.4 Basophils % 0.4 PT with INR 11.40 INR 1.01 PTT (Actin FS) D-Dimer Sodium Potassium Chloride Carbon Dioxide Anion Gap BUN Creatinine Creat Clearance w eGFR Random Glucose Hemoglobin A1c % Calcium Phosphorus Magnesium Total Bilirubin AST ALT Alkaline Phosphatase Creatine Kinase Creatine Kinase Index CK-MB (CK-2) Cancelled Troponin I B-Natriuretic Peptide Total Protein Albumin Triglycerides Cholesterol Total LDL Cholesterol HDL Cholesterol Urine Color Urine Appearance Urine pH Ur Specific [place] Urine Protein Urine Glucose (UA) Urine Ketones Urine Blood Urine Nitrite Urine Bilirubin Urine Urobilinogen Ur Leukocyte Esterase Urine WBC (Auto) Urine RBC (Auto) 07/09/17 07/09/17 07/09/17 05:35 05:35 05:35 WBC RBC Hgb Hct MCV MCH MCHC RDW Plt Count MPV Neutrophils % Lymphocytes % Monocytes % Eosinophils % Basophils % PT with INR INR PTT (Actin FS) D-Dimer Sodium 139 Potassium 3.9 Chloride 104 Carbon Dioxide 28 Anion Gap 7 L BUN 10 Creatinine 0.6 Creat Clearance w eGFR > 60 Random Glucose 122 H Hemoglobin A1c % 7.8 H Calcium 8.8 Phosphorus 4.8 Magnesium 2.1 Total Bilirubin 0.4 D AST 45 H ALT 50 Alkaline Phosphatase 145 H Creatine Kinase Creatine Kinase Index CK-MB (CK-2) 8.339 H Troponin I 2.70 H* B-Natriuretic Peptide Total Protein 7.2 Albumin 3.5 Triglycerides 440 H Cholesterol 190 198 Total LDL Cholesterol 97 HDL Cholesterol 32 L Urine Color Urine Appearance Urine pH Ur Specific [place] Urine Protein Urine Glucose (UA) Urine Ketones Urine Blood Urine Nitrite Urine Bilirubin Urine Urobilinogen Ur Leukocyte Esterase Urine WBC (Auto) Urine RBC (Auto) 07/09/17 07/09/17 07/09/17 05:35 12:27 12:27 WBC RBC Hgb Hct MCV MCH MCHC RDW Plt Count MPV Neutrophils % Lymphocytes % Monocytes % Eosinophils % Basophils % PT with INR INR PTT (Actin FS) 54.1 H D D-Dimer Sodium Potassium Chloride Carbon Dioxide Anion Gap BUN Creatinine Creat Clearance w eGFR Random Glucose Hemoglobin A1c % Calcium Phosphorus Magnesium Total Bilirubin AST ALT Alkaline Phosphatase Creatine Kinase 165 Creatine Kinase Index 4.0 CK-MB (CK-2) 6.719 H Cancelled Troponin I 2.07 H* B-Natriuretic Peptide Total Protein Albumin Triglycerides Cholesterol Total LDL Cholesterol HDL Cholesterol Urine Color Urine Appearance Urine pH Ur Specific [place] Urine Protein Urine Glucose (UA) Urine Ketones Urine Blood Urine Nitrite Urine Bilirubin Urine Urobilinogen Ur Leukocyte Esterase Urine WBC (Auto) Urine RBC (Auto) EKG: Sinus rhythm without ST elevations or depressions. Possibly left ventricle hypertrophy. ASSESSMENT/PLAN: 51 yr old female with history of cardiac cath (2014), HTN, and pre-diabetes presented to the ED with 1 day of persistent chest pain and was found to have elevated cardiac enzymes. #NSTEMI; On admission troponin I was 0.88 and has increased to 2.70. Repeat EKG does not demonstrate ST segment changes. Continue to trend troponins Q6H. If increase in troponins consider transfer for cardiac cath. -Order ASA, nitroglycerin, statin, plavix, lopressor 25 mg for today -Continue O2 2 L -Heparin ggt -Cardiology consultation and recommend transfer #Diabetes mellitus-HgA1c 7.8%, while in the hospital ISS with BG QAC/HS #FEN -No fluids -Low sodium/diabetic diet -DVT prophylaxis- heparin ggt #Dispo- transfer for cardiac cath
--- NOTE | 2017-07-09 15:00 | DS ---
Physical Exam: SUBJECTIVE: Patient seen and examined - No major overnight events; on heparin gtt; pt complaining of mild, deep, substernal chest pain without radiation with some associated chest tightness; Also endorses mild L frontal WOOD with no associated neuro findings; Denies f/c/n/ v/d, lightheadness, cough, sob, ab pain, back pain, LE edema or peripheral numbness/weakness; pt only takes ASA at home; prior NSTEMI in 2014 OBJECTIVE: Vital Signs Intake & Output 07/06/17 07/07/17 07/08/17 07/09/17 23:59 23:59 23:59 23:59 Intake Total 120 Balance 120 Weight 68.039 kg 67.313 kg Period Temp Pulse Resp BP Sys/Cabrera Pulse Ox Last 24 Hr 98.0 F-98.7 F 57-77 18-20 132-174/61-89 97-99 PHYSICAL EXAM GENERAL: Middle aged woman, NAD, A&Ox3 HEAD: NCAT EYES: PERRL, extraocular movements intact, sclera anicteric, conjunctiva clear. No ptosis. ENT: Ears normal, nares patent, oropharynx clear without exudates, moist mucous membranes. NECK: Trachea midline, full range of motion, supple. LUNGS: CTABL, no wheezes or rhonchi HEART: Regular rate and rhythm, S1, S2 without murmur, rub or gallop. ABDOMEN: Soft, nontender, nondistended, normoactive bowel sounds, no guarding, no rebound EXTREMITIES: 2+ pulses, warm, well-perfused, no edema. NEUROLOGICAL: Cranial nerves II through XII grossly intact. Normal speech, gait not observed. PSYCH: Normal mood, normal affect. LABS Laboratory Results - last 24 hr CBC, BMP 07/09/17 05:35 07/09/17 05:35 07/08/17 07/08/17 07/08/17 21:40 21:42 21:42 WBC 8.4 RBC 4.08 Hgb 13.2 Hct 37.2 MCV 91.2 MCH 32.4 MCHC 35.5 RDW 13.2 Plt Count 228 MPV 9.6 Neutrophils % 60.6 Lymphocytes % 30.5 D Monocytes % 6.2 Eosinophils % 2.2 Basophils % 0.5 PT with INR 11.10 INR 0.98 PTT (Actin FS) 26.1 L D-Dimer Sodium 141 Potassium 4.2 Chloride 106 Carbon Dioxide 27 Anion Gap 8 BUN 9 Creatinine 0.7 Creat Clearance w eGFR > 60 Random Glucose 110 H Hemoglobin A1c % Calcium 8.9 Phosphorus Magnesium Total Bilirubin 0.3 AST 43 H ALT 57 Alkaline Phosphatase 162 H Creatine Kinase 209 H Creatine Kinase Index 3.5 CK-MB (CK-2) 7.395 H Troponin I 0.88 H* B-Natriuretic Peptide Total Protein 8.0 Albumin 3.7 Triglycerides Cholesterol Total LDL Cholesterol HDL Cholesterol Urine Color Urine Appearance Urine pH Ur Specific [place] Urine Protein Urine Glucose (UA) Urine Ketones Urine Blood Urine Nitrite Urine Bilirubin Urine Urobilinogen Ur Leukocyte Esterase Urine WBC (Auto) Urine RBC (Auto) 07/08/17 07/08/17 07/08/17 21:42 21:42 21:45 WBC RBC Hgb Hct MCV MCH MCHC RDW Plt Count MPV Neutrophils % Lymphocytes % Monocytes % Eosinophils % Basophils % PT with INR INR PTT (Actin FS) D-Dimer 305 Sodium Potassium Chloride Carbon Dioxide Anion Gap BUN Creatinine Creat Clearance w eGFR Random Glucose Hemoglobin A1c % Calcium Phosphorus Magnesium Total Bilirubin AST ALT Alkaline Phosphatase Creatine Kinase Creatine Kinase Index CK-MB (CK-2) Troponin I B-Natriuretic Peptide 264.24 H Total Protein Albumin Triglycerides Cholesterol Total LDL Cholesterol HDL Cholesterol Urine Color Straw Urine Appearance Clear Urine pH 7.0 Ur Specific [place] 1.005 Urine Protein Negative Urine Glucose (UA) Negative Urine Ketones Negative Urine Blood 1+ H Urine Nitrite Negative Urine Bilirubin Negative Urine Urobilinogen Negative Ur Leukocyte Esterase Negative Urine WBC (Auto) 1 Urine RBC (Auto) 5 07/09/17 07/09/17 07/09/17 05:30 05:35 05:35 WBC 9.2 RBC 3.91 Hgb 12.7 Hct 36.2 MCV 92.4 MCH 32.5 MCHC 35.2 RDW 12.7 Plt Count 218 MPV 9.7 Neutrophils % 59.5 Lymphocytes % 32.8 Monocytes % 4.9 Eosinophils % 2.4 Basophils % 0.4 PT with INR 11.40 INR 1.01 PTT (Actin FS) D-Dimer Sodium Potassium Chloride Carbon Dioxide Anion Gap BUN Creatinine Creat Clearance w eGFR Random Glucose Hemoglobin A1c % Calcium Phosphorus Magnesium Total Bilirubin AST ALT Alkaline Phosphatase Creatine Kinase Creatine Kinase Index CK-MB (CK-2) Cancelled Troponin I B-Natriuretic Peptide Total Protein Albumin Triglycerides Cholesterol Total LDL Cholesterol HDL Cholesterol Urine Color Urine Appearance Urine pH Ur Specific [place] Urine Protein Urine Glucose (UA) Urine Ketones Urine Blood Urine Nitrite Urine Bilirubin Urine Urobilinogen Ur Leukocyte Esterase Urine WBC (Auto) Urine RBC (Auto) 07/09/17 07/09/17 07/09/17 05:35 05:35 05:35 WBC RBC Hgb Hct MCV MCH MCHC RDW Plt Count MPV Neutrophils % Lymphocytes % Monocytes % Eosinophils % Basophils % PT with INR INR PTT (Actin FS) D-Dimer Sodium 139 Potassium 3.9 Chloride 104 Carbon Dioxide 28 Anion Gap 7 L BUN 10 Creatinine 0.6 Creat Clearance w eGFR > 60 Random Glucose 122 H Hemoglobin A1c % 7.8 H Calcium 8.8 Phosphorus 4.8 Magnesium 2.1 Total Bilirubin 0.4 D AST 45 H ALT 50 Alkaline Phosphatase 145 H Creatine Kinase Creatine Kinase Index CK-MB (CK-2) 8.339 H Troponin I 2.70 H* B-Natriuretic Peptide Total Protein 7.2 Albumin 3.5 Triglycerides 440 H Cholesterol 190 198 Total LDL Cholesterol 97 HDL Cholesterol 32 L Urine Color Urine Appearance Urine pH Ur Specific [place] Urine Protein Urine Glucose (UA) Urine Ketones Urine Blood Urine Nitrite Urine Bilirubin Urine Urobilinogen Ur Leukocyte Esterase Urine WBC (Auto) Urine RBC (Auto) 07/09/17 07/09/17 07/09/17 05:35 12:27 12:27 WBC RBC Hgb Hct MCV MCH MCHC RDW Plt Count MPV Neutrophils % Lymphocytes % Monocytes % Eosinophils % Basophils % PT with INR INR PTT (Actin FS) 54.1 H D D-Dimer Sodium Potassium Chloride Carbon Dioxide Anion Gap BUN Creatinine Creat Clearance w eGFR Random Glucose Hemoglobin A1c % Calcium Phosphorus Magnesium Total Bilirubin AST ALT Alkaline Phosphatase Creatine Kinase 165 Creatine Kinase Index 4.0 CK-MB (CK-2) 6.719 H Cancelled Troponin I 2.07 H* B-Natriuretic Peptide Total Protein Albumin Triglycerides Cholesterol Total LDL Cholesterol HDL Cholesterol Urine Color Urine Appearance Urine pH Ur Specific [place] Urine Protein Urine Glucose (UA) Urine Ketones Urine Blood Urine Nitrite Urine Bilirubin Urine Urobilinogen Ur Leukocyte Esterase Urine WBC (Auto) Urine RBC (Auto) No micro EKG 07/09 AM - NSR, rate of 60, NAD, no ST/TW changes CXR 07/08 - Normal chest HOSPITAL COURSE: Pre hospital course: Patient is a 51 yo F with a pmhx of HTN, NSTEMI (2014, s/p stent?), presented today because of 3 week onset of intermittent, 9/10, mid-sternal, pressure-like chest pain with exertion, radiating to the right side of her neck. She said the pain usually lasts 45 minutes but today the pain lasted all day with associated dizziness and nausea. She was seen by her PCP and was prescribed nitroglycerin and Aspirin with no relief. Patient also reports having dyspnea on exertion. Patient had a similar episode in 2014 and was diagnosed with NSTEMI and transferred to [place]. Patient does not remember if she had a stent placed. Nitroglycerin was given in the ER and patient currently does not have chest pain. Patient denies edema, diaphoresis, diarrhea, vomiting, dysuria, fevers. ER course was notable for: (1) Trop: 0.88, EKG NSR, no ST changes (2) Heparin drip, NTG, ASA (3) Cardiology consulted: Dr. Swan Admission course: Pt received ASA, metoprolol, NTG paste, plavix, morphine on admission. Pt admitted to telemetry, cardiology consulted. Pt started on Heparin gtt. CXR normal. EKG as noted above. In AM, pt still complaining of chest pain, however much improved. Telemetry NSR 60-90s. Pt seen by cardiology in AM. Repeat trop 0.88 -> 2.7 -> 2.07 in PM. Lipid panel notable for Triglycerides of 440, HDL of 32. Transfer initiated to [facility] for cardiac cath today. Pt stable on transfer. Date of Admission:07/08/17 Date of Discharge: 07/09/17 Pt is medically stable and cleared for transfer to [facility] for [facility] to further evaluate for cardiac dz in setting of NSTEMI. Minutes to complete discharge: 35 Discharge Summary Reason For Visit: CHEST PAIN Current Active Problems Chest pain (Acute) Condition: Guarded - Instructions Referrals: ON STAFF,NOT [Primary Care Provider] - Disposition: TRANSFER ACUTE CARE/OTHER HOSP - Home Medications Comprehensive Discharge Medication List: Ambulatory Orders Aspirin [Aspirin EC] 81 mg PO DAILY 07/08/17 Nitroglycerin Sublingual [Nitrostat -] 0.4 mg SL [id number] PRN MDD 3 07/08/17 This patient is new to me today: Yes Date on this admission: 07/09/17 Emergency Visit: Yes ED Registration Date: 07/08/17 Care time: The patient presented to the Emergency Department on the above date and was hospitalized for further evaluation of their emergent condition. Critical Care patient: No - Discharge Referral Referred to [facility] No
--- NOTE | 2017-07-09 16:50 | EKG ---
Test Reason : Blood Pressure : / mmHG Vent. Rate : 060 BPM Atrial Rate : 060 BPM P-R Int : 128 ms QRS Dur : 080 ms QT Int : 438 ms P-R-T Axes : 048 -01 -05 degrees QTc Int : 438 ms NORMAL SINUS RHYTHM MINIMAL VOLTAGE CRITERIA FOR LVH, MAY BE NORMAL VARIANT BORDERLINE ECG WHEN COMPARED WITH ECG OF 08-JUL-2017 21:02, NO SIGNIFICANT CHANGE WAS FOUND Confirmed by MD Corona, Pj ([id number]) on 07/09/2017 4:49:49 PM Referred By: ANYA PARHAM Confirmed By:Pj Jeter MD
--- NOTE | 2017-07-09 16:52 | EKG ---
Test Reason : Blood Pressure : / mmHG Vent. Rate : 063 BPM Atrial Rate : 063 BPM P-R Int : 118 ms QRS Dur : 082 ms QT Int : 416 ms P-R-T Axes : 046 005 018 degrees QTc Int : 425 ms NORMAL SINUS RHYTHM MINIMAL VOLTAGE CRITERIA FOR LVH, MAY BE NORMAL VARIANT BORDERLINE ECG WHEN COMPARED WITH ECG OF 04-JUL-2014 09:22, BORDERLINE CRITERIA FOR INFERIOR INFARCT ARE NO LONGER PRESENT T WAVE AMPLITUDE HAS DECREASED IN ANTERIOR LEADS Confirmed by MD Corona, Pj ([id number]) on 07/09/2017 4:51:53 PM Referred By: Confirmed By:Pj Jeter MD
--- NOTE | 2017-07-09 16:54 | PN ---
Teaching Attending Note Name of Resident: Justin Pryor ATTENDING PHYSICIAN STATEMENT I saw and evaluated the patient. I reviewed the resident's note and discussed the case with the resident. I agree with the resident's findings and plan as documented. SUBJECTIVE:asymptomatic. states CP resolved last night with NTG. no recurrent episodes. WOOD has now resolved. denies CP, SOB, fever, chills, N/V/C/D OBJECTIVE: Last Vital Signs Temp Pulse Resp BP Pulse Ox 98.3 F 64 18 133/61 99 07/09/17 14:40 07/09/17 14:40 07/09/17 14:40 07/09/17 14:40 07/09/17 09:00 General NAD CV S1 S2 RRR no murmur/rub/gallop Lungs CTA B/L no wheezing/rales/rhonchi Abdomen soft NT/ND ASSESSMENT AND PLAN: 51yo F wtih PMH HTN and NSTEMI with stent placement came to the ER with CP radiating to the neck x3 weeks 1. NSTEMI- Troponin trending up to 2.7. plavix and asa loaded on hep ggt. cont to trend Troponin til trending down. plan for emergent transfer to [facility] for cardiac cath. cardio on board 2. WOOD- likely due to NTG. now resolved. 3. awaiting transfer to [facility]
[2017-07-09 20:28] VITALS: BP 128/59; PULSE 58; TEMP 100.3
== END 2017-07-09 20:53 | disposition short-term general hospital (02) | DRG 190 ==
LOC: JER 20:50 → JERBED 23:16 → UNDOADMIN 23:19 → JERBED 23:19 → J4S 07-09 01:29
PROVIDERS: ADMIT Internal Medicine; ATTEND Internal Medicine
DX: I21.4 Non-ST elevation (NSTEMI) myocardial infarction (principal); E11.9 Type 2 diabetes mellitus without complications; I10 Essential (primary) hypertension; I25.2 Old myocardial infarction
CPT/HCPCS: 36415; 71046-TC-FY; 80053; 80061; 81003; 81015; 82465; 82550; 82553; 83036; 83721; 83735; 83880; 84100; 84484; 85025; 85379; 85610; 85730; 93005; 93010; 93306-TC; 99285-25; J1644

== ENCOUNTER 2021-03-13 10:53 | Inpatient (IN) | payer OTHER ==
[2021-03-13] MEDS ORDERED: ACETAMINOPHEN 1000 MG/100 ML BAG IVPB ONE (12:22)
[2021-03-13] MEDS ORDERED: METOCLOPRAMIDE HCL INJECTION 10 MG/2 ML VIAL IVPB ONE (12:22)
[2021-03-13] MEDS ORDERED: METOCLOPRAMIDE HCL INJECTION 10 MG/2 ML VIAL ONE (12:28)
[2021-03-13] MEDS ORDERED: ACETAMINOPHEN INJECTION 100 ML IVPB ONE (12:28)
[2021-03-13 12:45] LABS: BASO % 0.5 % (0-2.0); EOS % 0.7 % (0-4.5); HEMOGLOBIN 14.4 GM/dL (10.7-15.3); LYMPH % 18.2 % (8-40); MCH 31.4 pg (25.7-33.7); MCHC 34.4 g/dl (32.0-36.0); MEAN CELL VOLUME 91.4 fl (80-96); MEAN PLT VOLUME 9.6 fl (7.5-11.1); MONO % 3.2 % (3.8-10.2); NEUT % 77.4 % (42.8-82.8); PLATELET COUNT 245 10^3/uL (134-434); RBC 4.59 M/mm3 (3.60-5.2); RDW 12.9 % (11.6-15.6); WHITE BLOOD COUNT 10.2 K/mm3 (4.0-10.0)
[2021-03-13 13:04] LABS: CHLORIDE 106 mmol/L (98-107); SODIUM 140 mmol/L (136-145)
[2021-03-13 13:06] LABS: CALCIUM 9.3 mg/dL (8.5-10.1)
[2021-03-13 13:07] LABS: ALBUMIN 4.1 g/dl (3.4-5.0); ANION GAP 7 MMOL/L (8-16); BLOOD UREA NITROGEN 14.7 mg/dL (7-18); CO2 28 mmol/L (21-32); GLUCOSE,RANDOM 158 mg/dL (74-106)
[2021-03-13 13:10] LABS: CREATININE 0.7 mg/dL (0.55-1.3); SGOT/AST 37 U/L (15-37); SGPT/ALT 46 U/L (13-61)
[2021-03-13 13:12] LABS: BILIRUBIN,TOTAL 0.7 mg/dL (0.2-1); TOT PROT 8.5 g/dl (6.4-8.2)
[2021-03-13 13:13] LABS: ALK PHOS 176 U/L (45-117)
[2021-03-13] MEDS ORDERED: ASPIRIN 81 MG CHEWABLE TABLETS PO ONE (13:38)
[2021-03-13] MEDS ORDERED: ASPIRIN COATED 81 MG TABLET.EC ONE (13:47)
[2021-03-13] MEDS ORDERED: CLOPIDOGREL BISULFATE 300 MG TABLET PO ONE (14:09)
[2021-03-13] MEDS ORDERED: HEPARIN NA (PORCINE) 5,000 UNITS/ML 1ML VIAL IVPUSH ONE (14:09)
[2021-03-13] MEDS ORDERED: HEPARIN NA (PORCINE) 5,000 UNITS/ML 1ML VIAL IVPUSH PRN ×2 (14:10)
[2021-03-13] MEDS ORDERED: ATORVASTATIN CA 80 MG TABLET (FP) PO ONE (14:11)
[2021-03-13] MEDS ORDERED: CLOPIDOGREL BISULFATE 300 MG TABLET ONE (14:26)
[2021-03-13] MEDS ORDERED: HEPARIN NA (PORCINE) 5,000 UNITS/ML 1ML VIAL ONE (14:26)
[2021-03-13] MEDS ORDERED: ATORVASTATIN CA 80 MG TABLET (FP) ONE (14:26)
[2021-03-13] MEDS: HEPARIN - 25,000 UNIT in SODIUM CHLORIDE 495 ML IV SCH ×2 (15:09→18:45)
[2021-03-13] MEDS ORDERED: amLODIPine BESYLATE 5 MG TABLET (FP) PO ONE (16:35)
[2021-03-13] MEDS ORDERED: amLODIPine BESYLATE 5 MG TABLET (FP) ONE (16:40)
[2021-03-13] MEDS: LISINOPRIL 20 MG TABLET PO SCH (17:33)
[2021-03-13 18:32] LABS: INR 1.08 (0.83-1.09); PROTHROMBIN TIME (PATIENT) 12.6 SEC (9.7-13.0)
[2021-03-13 18:35] LABS: ACTIVATED PTT 102.5 SECONDS (25.2-36.5)
[2021-03-13 19:00] VITALS: BMI 32.0
[2021-03-13] MEDS ORDERED: FLU VACC QS2021-22(6MOS UP)/PF 60 MCG/0.5 ML SYRINGE IM ONE (19:01)
[2021-03-13] MEDS: ATORVASTATIN CA 40 MG TABLET (FP) PO SCH (21:15)
[2021-03-13] MEDS: NITROGLYCERIN SUBLINGUAL 1/150 0.4 MG TAB SL PRN ×3 (22:52→23:03)
[2021-03-14] MEDS: NITROGLYCERIN SUBLINGUAL 1/150 0.4 MG TAB SL PRN ×2 (06:03→06:08)
[2021-03-14] MEDS ORDERED: ACETAMINOPHEN 1000 MG/100 ML BAG IVPB ONE (06:13)
[2021-03-14] MEDS ORDERED: METOPROLOL TARTRATE 50 MG TABLET (FP) PO ONE (06:45)
[2021-03-14 08:01] LABS: BASO % 0.4 % (0-2.0); EOS % 0.5 % (0-4.5); HEMATOCRIT 40.4 % (32.4-45.2); LYMPH % 24.8 % (8-40); MCH 31.4 pg (25.7-33.7); MCHC 34.7 g/dl (32.0-36.0); MEAN CELL VOLUME 90.5 fl (80-96); MEAN PLT VOLUME 9.8 fl (7.5-11.1); MONO % 5.4 % (3.8-10.2); NEUT % 68.9 % (42.8-82.8); PLATELET COUNT 238 10^3/uL (134-434); RBC 4.46 M/mm3 (3.60-5.2); RDW 13.4 % (11.6-15.6)
[2021-03-14 08:25] LABS: CALCIUM 9.3 mg/dL (8.5-10.1); TOT PROT 8.1 g/dl (6.4-8.2)
[2021-03-14 08:26] LABS: ALBUMIN 3.8 g/dl (3.4-5.0); BLOOD UREA NITROGEN 10.1 mg/dL (7-18); MAGNESIUM 2.2 mg/dL (1.8-2.4); PHOSPHOROUS 4.2 mg/dL (2.5-4.9)
[2021-03-14 08:29] LABS: CREATININE 0.6 mg/dL (0.55-1.3)
[2021-03-14] MEDS: ASPIRIN COATED 81 MG TABLET.EC PO SCH (10:09)
[2021-03-14] MEDS: CLOPIDOGREL BISULFATE 75 MG TABLET (FP) PO SCH (10:09)
[2021-03-14] MEDS: LISINOPRIL 20 MG TABLET PO SCH (10:09)
[2021-03-14] MEDS: HEPARIN - 25,000 UNIT in SODIUM CHLORIDE 495 ML IV SCH (10:54)
[2021-03-14] MEDS ORDERED: PT OWN MED DRAWER 7, Y5N ONE (17:54)
[2021-03-14 18:27] LABS: BLOOD UREA NITROGEN 9.6 mg/dL (7-18); CALCIUM 9.2 mg/dL (8.5-10.1); CREATININE 0.7 mg/dL (0.55-1.3)
[2021-03-14] MEDS: METOPROLOL TARTRATE 50 MG TABLET (FP) PO SCH (21:09)
[2021-03-14] MEDS: ATORVASTATIN CA 40 MG TABLET (FP) PO SCH (21:09)
[2021-03-15 07:21] LABS: HEMATOCRIT 38.5 % (32.4-45.2); HEMOGLOBIN 13.4 GM/dL (10.7-15.3); MCH 31.6 pg (25.7-33.7); MCHC 34.7 g/dl (32.0-36.0); MEAN CELL VOLUME 90.9 fl (80-96); MEAN PLT VOLUME 9.2 fl (7.5-11.1); PLATELET COUNT 215 10^3/uL (134-434); RBC 4.23 M/mm3 (3.60-5.2); RDW 13.3 % (11.6-15.6); WHITE BLOOD COUNT 8.4 K/mm3 (4.0-10.0)
[2021-03-15 07:42] LABS: CHLORIDE 107 mmol/L (98-107); INR 1.13 (0.83-1.09); PROTHROMBIN TIME (PATIENT) 12.7 SEC (9.7-13.0); SODIUM 139 mmol/L (136-145)
[2021-03-15 07:44] LABS: ALBUMIN 3.4 g/dl (3.4-5.0); ANION GAP 5 MMOL/L (8-16); BLOOD UREA NITROGEN 15.6 mg/dL (7-18); CO2 27 mmol/L (21-32)
[2021-03-15 07:45] LABS: ACTIVATED PTT 70.7 SECONDS (25.2-36.5); GLUCOSE,RANDOM 126 mg/dL (74-106)
[2021-03-15 07:47] LABS: CREATININE 0.7 mg/dL (0.55-1.3); SGPT/ALT 42 U/L (13-61)
[2021-03-15 07:48] LABS: SGOT/AST 66 U/L (15-37)
[2021-03-15 07:49] LABS: BILIRUBIN,TOTAL 0.8 mg/dL (0.2-1); TOT PROT 7.4 g/dl (6.4-8.2)
[2021-03-15 07:50] LABS: ALK PHOS 149 U/L (45-117)
[2021-03-15] MEDS: METOPROLOL TARTRATE 50 MG TABLET (FP) PO SCH (09:50)
[2021-03-15] MEDS: CLOPIDOGREL BISULFATE 75 MG TABLET (FP) PO SCH (09:51)
[2021-03-15] MEDS: ASPIRIN COATED 81 MG TABLET.EC PO SCH (09:51)
[2021-03-15] MEDS: LISINOPRIL 20 MG TABLET PO SCH (09:51)
[2021-03-15 10:40] VITALS: BP 102/46; PULSE 59; TEMP 98
== END 2021-03-15 10:55 | disposition short-term general hospital (02) | DRG 190 ==
LOC: JER 10:53 → JERBED 13:51 → J4W 16:58
PROVIDERS: ADMIT Internal Medicine; ATTEND Internal Medicine
DX: I21.4 Non-ST elevation (NSTEMI) myocardial infarction (principal); E87.1 Hypo-osmolality and hyponatremia; E11.9 Type 2 diabetes mellitus without complications; E78.5 Hyperlipidemia, unspecified; I10 Essential (primary) hypertension; I25.10 Atherosclerotic heart disease of native coronary artery without angina pectoris; D72.829 Elevated white blood cell count, unspecified; R51.9 Headache, unspecified; R07.9 Chest pain, unspecified
CPT/HCPCS: 36415; 71045-TC-FY; 80048; 80053; 80061; 82550; 82553; 83036; 83690; 83735; 84100; 84443; 84484; 85025; 85027; 85610; 85730; 90686; 93005; 93010; 93306-TC; 97116-GP; 97161-GP; 99285-25; C9803; G0008; J0131; J1644; U0003; U0005

== ENCOUNTER 2022-12-28 21:30 | Emergency (ER) | payer OTHER ==
[2022-12-28 21:37] VITALS: BP 149/84; PULSE 78; RESP 20; TEMP 98.9; BMI 31.4
[2022-12-28] MEDS ORDERED: IBUPROFEN 600 MG TABLET (FP) PO ONE ×2 (23:19→23:31)
[2022-12-28] MEDS ORDERED: diphenhydrAMINE HCL 25 MG CAPSULE (FP) PO ONE ×2 (23:19→23:30)
== END 2022-12-28 23:52 | disposition home or self-care (01) ==
LOC: JER 21:30
DX: S00.461A Insect bite (nonvenomous) of right ear, initial encounter (principal); L29.9 Pruritus, unspecified; H93.8X9 Other specified disorders of ear, unspecified ear; H92.01 Otalgia, right ear; R20.2 Paresthesia of skin; W57.XXXA Bitten or stung by nonvenomous insect and other nonvenomous arthropods, initial encounter
CPT/HCPCS: 99283-25